=== PATIENT | female | born 1965 | race Caucasian/White ===

== ENCOUNTER 2018-01-24 20:49 | Emergency (ER) | payer SELFPAY ==
[~2018-01-24] VITALS: Ht 157.5 cm; Wt 81.6 kg
[2018-01-24 21:19] VITALS: BP 150/90
[2018-01-24] MEDS ORDERED: LIDOCAINE W/ EPINEPHRINE 1 % INJ 30ML ONE (21:25)
[2018-01-24] MEDS ORDERED: LIDOCAINE W/ EPINEPHRINE 1% 20ML VIAL IJ ONE (21:30)
[2018-01-24] MEDS ORDERED: ACETAMINOPHEN/CODEINE#3 (300/30mg) TAB PO ONE (22:00)
[2018-01-24] MEDS ORDERED: cefTRIAXone SOD 1,000 MG VL IM ONE (22:00)
== END 2018-01-24 22:08 | disposition home or self-care (01) ==
LOC: ER 20:49
DX: S61.411A Laceration without foreign body of right hand, initial encounter (principal); W26.9XXA Contact with unspecified sharp object(s), initial encounter; Y93.89 Activity, other specified; Y99.8 Other external cause status; Y92.89 Other specified places as the place of occurrence of the external cause
CPT/HCPCS: 12002; 96372; 99283; J0696; J2001

== ENCOUNTER 2020-12-30 22:14 | Emergency (ER) | payer MEDICAID, OTHER ==
[~2020-12-30] VITALS: Ht 165.1 cm; Wt 104.3 kg
[2020-12-30 23:26] LABS: Basophils # (auto) 0 10 ^3/uL (0-0.2); Basophils % (auto) 0.6 % (0.0-2.0); Eosinophils # (auto) 0.2 10 ^3/uL (0-0.8); Hematocrit 45.9 % (36.0-46.0); Hemoglobin 15.6 g/dL (12.2-16.2); Lymphocytes # (auto) 1.7 10 ^3/uL (0.4-5.4); Lymphocytes % (auto) 21.4 % (10.0-50.0); Mean Corpuscular Hgb Conc. 34.1 g/dL (32.0-36.0); Mean Corpuscular Volume 96.9 fL (80.0-100.0); Monocytes # (auto) 0.5 10 ^3/uL (0-1.3); Monocytes % (auto) 6.2 % (0.0-12.0); Neutrophils # (auto) 5.7 10 ^3/uL (1.6-8.6); Neutrophils % (auto) 69.8 % (37.0-80.0); Nucleated Red Blood Cells % 0.1 %; Red Blood Cells 4.74 10^6/uL (4.0-5.20); Red Cell Distribution Width 13.1 % (11.8-14.3); White Blood Cell 8.2 10^3/uL (4.4-10.8)
[2020-12-30 23:53] LABS: Albumin 4.1 g/dL (3.4-5.0); BUN/Creatinine Ratio 16.9; Calcium 8.6 mg/dL (8.5-10.1); Magnesium 2.1 mg/dL (1.6-2.6); Potassium 3.3 mmol/L (3.5-5.1)
[2020-12-30 23:54] LABS: Acetaminophen < 2.0 ug/mL (10-30); Salicylate < 1.7 mg/dL (2.8-20.0)
[2020-12-30 23:56] LABS: Bilirubin, Total 0.7 mg/dL (0.2-1.0); Total Protein 7.1 g/dL (6.4-8.2)
[2020-12-31] MEDS ORDERED: GABAPENTIN 300 MG CAP PO ONE (00:30)
[2020-12-31] MEDS ORDERED: ACETAMINOPHEN 325 MG TAB PO ONE (02:30)
[2020-12-31 02:42] LABS: Urine Bacteria FEW /hpf (None Seen); Urine Blood Negative /uL (Negative); Urine Mucus FEW (None Seen); Urine Specific Gravity 1.027 (1.001-1.035); Urine WBC 44 /hpf (0 - 5)
[2020-12-31 02:48] LABS: Amphetamine Screen, Urine NEGATIVE (NEGATIVE); Barbiturate Scree,Urine NEGATIVE (NEGATIVE); Benzodiazephine Screen, Urine NEGATIVE (NEGATIVE); Cannabinoid Screen, Urine NEGATIVE (NEGATIVE); Cocaine Screen, Urine NEGATIVE (NEGATIVE); Opiate Scree,Urine NEGATIVE (NEGATIVE); Phencyclidine Screen, Urine NEGATIVE (NEGATIVE)
[2020-12-31] MEDS ORDERED: FAMOTIDINE 20 MG TAB PO ONE (05:30)
[2020-12-31] MEDS ORDERED: POTASSIUM EFFERVESENT TAB 25 MEQ PO ONE (12:45)
[2020-12-31 20:14] VITALS: BP 144/81
== END 2020-12-31 20:15 | disposition home or self-care (01) ==
LOC: EDBD 22:14 → ER 22:14
DX: R45.851 Suicidal ideations (principal); R51.9 Headache, unspecified; M54.2 Cervicalgia; I10 Essential (primary) hypertension; J45.909 Unspecified asthma, uncomplicated; R07.89 Other chest pain; F17.210 Nicotine dependence, cigarettes, uncomplicated; M79.605 Pain in left leg
CPT/HCPCS: 36415; 70450; 71045; 72125; 73562; 80053; 80307; 80320; 80329; 81001; 83735; 84702; 85025

== ENCOUNTER 2021-02-15 20:24 | Emergency (ER) | payer OTHER ==
[~2021-02-15] VITALS: Ht 172.7 cm; Wt 108.9 kg
[2021-02-15 20:30] VITALS: BP 130/69
== END 2021-02-15 21:16 | disposition left against medical advice (07) ==
LOC: EDBD 20:24 → ER 20:26
DX: F10.229 Alcohol dependence with intoxication, unspecified (principal); R51.9 Headache, unspecified; R47.81 Slurred speech; R11.10 Vomiting, unspecified; J45.909 Unspecified asthma, uncomplicated; K21.9 Gastro-esophageal reflux disease without esophagitis; I10 Essential (primary) hypertension; F17.220 Nicotine dependence, chewing tobacco, uncomplicated; Y90.9 Presence of alcohol in blood, level not specified

== ENCOUNTER 2021-09-29 17:05 | Emergency (ER) | payer OTHER, MEDICAID ==
[~2021-09-29] VITALS: Ht 162.6 cm; Wt 90.7 kg
[2021-09-29] MEDS ORDERED: LORazepam 2MG/ML-1ML VIAL IV ONE (17:15)
[2021-09-29] MEDS ORDERED: LORazepam 2MG/ML-1ML VIAL ONE (17:15)
[2021-09-29] MEDS ORDERED: methylPREDNISolone SOD SUCC 125 MG/2 ML VL IV ONE (19:00)
[2021-09-29 19:35] LABS: Basophils # (auto) 0.1 10 ^3/uL (0-0.2); Eosinophils # (auto) 0.1 10 ^3/uL (0-0.8); Eosinophils % (auto) 1.8 % (0.0-7.0); Hemoglobin 15.4 g/dL (12.2-16.2); Lymphocytes # (auto) 1.5 10 ^3/uL (0.4-5.4); Lymphocytes % (auto) 26.7 % (10.0-50.0); Mean Corpuscular Hemoglobin 32.7 pg (28.0-32.0); Mean Corpuscular Hgb Conc. 34.3 g/dL (32.0-36.0); Mean Corpuscular Volume 95.5 fL (80.0-100.0); Monocytes # (auto) 0.4 10 ^3/uL (0-1.3); Monocytes % (auto) 7.1 % (0.0-12.0); Neutrophils # (auto) 3.5 10 ^3/uL (1.6-8.6); Neutrophils % (auto) 63.4 % (37.0-80.0); Nucleated Red Blood Cells % 0.1 %; Red Blood Cells 4.72 10^6/uL (4.0-5.20); Red Cell Distribution Width 14.3 % (11.8-14.3); White Blood Cell 5.5 10^3/uL (4.4-10.8)
[2021-09-29 19:55] LABS: Calcium 8.8 mg/dL (8.5-10.1)
[2021-09-29 19:57] LABS: BUN/Creatinine Ratio 16.7
[2021-09-29 20:00] LABS: Bilirubin, Total 0.7 mg/dL (0.2-1.0)
[2021-09-29 20:30] LABS: Potassium 2.9 mmol/L (3.5-5.1)
[2021-09-29] MEDS ORDERED: POTASSIUM CHL 20 Meq TABLET PO ONE (20:45)
[2021-09-29] MEDS ORDERED: THIAMINE HCL 100 MG TAB PO ONE (20:45)
[2021-09-29] MEDS ORDERED: MAGNESIUM OXIDE 400 MG TAB PO ONE (20:45)
[2021-09-29] MEDS ORDERED: SODIUM CHLORIDE 0.9% 1,000 ML IV ONE (21:45)
[2021-09-30 01:00] VITALS: BP 132/68
== END 2021-09-30 01:16 | disposition home or self-care (01) ==
LOC: ER 17:05 → EDBD 17:05 → ER 09-30 01:05
DX: F41.0 Panic disorder [episodic paroxysmal anxiety] (principal); E87.6 Hypokalemia; F10.10 Alcohol abuse, uncomplicated; J45.909 Unspecified asthma, uncomplicated; K21.9 Gastro-esophageal reflux disease without esophagitis; I10 Essential (primary) hypertension
CPT/HCPCS: 36415; 71045; 80053; 80320; 84484; 85025; 96361; 96374; 96375; 99284; J2060; J2930; J7030

== ENCOUNTER 2022-02-23 21:13 | Emergency (ER) | payer MEDICAID, OTHER | END 2022-02-23 22:27 | disposition left against medical advice (07) | LOC: ER 21:13 | DX: M79.604 Pain in right leg (principal); M25.522 Pain in left elbow; Z53.21 Procedure and treatment not carried out due to patient leaving prior to being seen by health care provider; W19.XXXA Unspecified fall, initial encounter; Y93.89 Activity, other specified; Y92.89 Other specified places as the place of occurrence of the external cause; Y99.8 Other external cause status ==

== ENCOUNTER 2022-11-30 21:17 | Emergency (ER) | payer MEDICAID, OTHER ==
[~2022-11-30] VITALS: Ht 160 cm; Wt 80.0 kg
[2022-11-30 22:09] LABS: Basophils # (auto) 0 10 ^3/uL (0-0.2); Eosinophils # (auto) 0.1 10 ^3/uL (0-0.8); Hemoglobin 14.4 g/dL (12.2-16.2); Lymphocytes # (auto) 1.9 10 ^3/uL (0.4-5.4); Neutrophils # (auto) 2.5 10 ^3/uL (1.6-8.6); Nucleated Red Blood Cells % 0.1 %; White Blood Cell 5.1 10^3/uL (4.4-10.8)
[2022-11-30 22:11] LABS: Basophils % (auto) 0.6 % (0.0-2.0); Eosinophils % (auto) 1.3 % (0.0-7.0); Hematocrit 42.2 % (36.0-46.0); Lymphocytes % (auto) 37.3 % (10.0-50.0); Mean Corpuscular Hemoglobin 34.6 pg (28.0-32.0); Mean Corpuscular Hgb Conc. 34.2 g/dL (32.0-36.0); Mean Corpuscular Volume 101.1 fL (80.0-100.0); Monocytes # (auto) 0.6 10 ^3/uL (0-1.3); Monocytes % (auto) 11.2 % (0.0-12.0); Neutrophils % (auto) 49.6 % (37.0-80.0); Red Blood Cells 4.18 10^6/uL (4.0-5.20); Red Cell Distribution Width 14.2 % (11.8-14.3)
[2022-11-30 22:26] LABS: Acetaminophen < 2.0 ug/mL (10-30); Albumin 3.5 g/dL (3.4-5.0); BUN/Creatinine Ratio 10.8 (10.0-20.0); Calcium 8.2 mg/dL (8.5-10.1); Salicylate < 1.7 mg/dL (2.8-20.0)
[2022-11-30 22:29] LABS: Bilirubin, Total 1.2 mg/dL (0.2-1.0); Total Protein 6.3 g/dL (6.4-8.2)
[2022-11-30 23:00] LABS: Potassium 2.6 mmol/L (3.5-5.1)
[2022-11-30] MEDS ORDERED: POTASSIUM CHL 20MEQ/100ML 100 ML IV ONE (23:15)
[2022-11-30] MEDS ORDERED: POTASSIUM EFFERVESENT TAB 25 MEQ PO ONE (23:15)
[2022-11-30] MEDS ORDERED: LACTATED RINGER'S 1,000 ML IV ONE (23:15)
[2022-11-30 23:55] LABS: Amphetamine Screen, Urine NEGATIVE (NEGATIVE); Barbiturate Scree,Urine NEGATIVE (NEGATIVE); Benzodiazephine Screen, Urine NEGATIVE (NEGATIVE); Cannabinoid Screen, Urine NEGATIVE (NEGATIVE); Cocaine Screen, Urine NEGATIVE (NEGATIVE)
[2022-12-01 00:05] LABS: Opiate Scree,Urine NEGATIVE (NEGATIVE); Phencyclidine Screen, Urine NEGATIVE (NEGATIVE)
[2022-12-01 02:00] VITALS: BP 127/78
== END 2022-12-01 04:02 | disposition home or self-care (01) ==
LOC: EDBD 21:17 → ER 21:17
DX: F41.0 Panic disorder [episodic paroxysmal anxiety] (principal); F10.10 Alcohol abuse, uncomplicated; J45.909 Unspecified asthma, uncomplicated; I10 Essential (primary) hypertension; K21.9 Gastro-esophageal reflux disease without esophagitis
CPT/HCPCS: 36415; 70450; 80053; 80307; 80320; 80329; 84132; 85025; 96360; 96361; 99285; J3480; 96365; 96366